=== PATIENT | female | born 1970 | race Caucasian/White ===

== ENCOUNTER → 2019-12-08 | Emergency (ER) | payer BC, OTHER ==
[~2019-12-08] VITALS: Ht 170.2 cm; Wt 77.1 kg
[2019-12-08 13:08] VITALS: BP 114/73
== END | disposition home or self-care (01) ==
LOC: EDUNIT# 12:50 → ER 12:55 → EDBD 12:55
DX: S52.571A Other intraarticular fracture of lower end of right radius, initial encounter for closed fracture (principal); S52.614A Nondisplaced fracture of right ulna styloid process, initial encounter for closed fracture; V49.9XXA Car occupant (driver) (passenger) injured in unspecified traffic accident, initial encounter; Y93.89 Activity, other specified; Y92.89 Other specified places as the place of occurrence of the external cause; Y99.8 Other external cause status
CPT/HCPCS: 29125; 73110